=== PATIENT | male | born 1990 | race American Indian/Alaskan Native ===

== ENCOUNTER 2017-05-25 11:51 | Emergency (ER) | payer MEDICAID | END 2017-05-25 12:00 | disposition left against medical advice (07) | LOC: ED 11:51 | DX: M54.9 Dorsalgia, unspecified (principal); Z53.21 Procedure and treatment not carried out due to patient leaving prior to being seen by health care provider ==

== ENCOUNTER 2017-05-25 13:30 | Outpatient (CLI) | payer MEDICARE ==
--- NOTE | 2017-05-25 16:30 | XRay Report ---
LEFT SHOULDER: History: Shoulder pain. Routine views demonstrate normal bony and soft tissue structures with normal joint alignment of the shoulder. IMPRESSION: Normal study.
--- NOTE | 2017-05-25 16:32 | XRay Report ---
Lateral lumbar spine including flexion and extension views. History: Back pain. Findings: The vertebral body heights and disc spaces are normal. The bony structures are normally mineralized. No acute findings are seen. There is no evidence of subluxation with either flexion or extension films. Impression: No significant findings.
== END 2017-05-25 13:31 | disposition home or self-care (01) ==
LOC: XRAY 13:30
DX: M25.519 Pain in unspecified shoulder (principal); Z79.899 Other long term (current) drug therapy; F17.200 Nicotine dependence, unspecified, uncomplicated
CPT/HCPCS: 72100

== ENCOUNTER 2018-10-23 13:19 | Emergency (ER) | payer MEDICARE ==
[2018-10-23 14:00] VITALS: BP 121/74
[2018-10-23] MEDS ORDERED: NORCO 5/325 PO ONE (14:18)
[2018-10-23] MEDS ORDERED: IBUPROFEN PO ONE (14:18)
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
--- NOTE | 2018-10-23 15:05 | XRay Report ---
FINAL REPORT EXAM: XR SPINE THORACIC 2V HISTORY: fall injury with pain . COMPARISON: None. TECHNIQUE: Three views of the thoracic spine FINDINGS: There is normal alignment without acute fracture or dislocation. Vertebral body heights and intervert ebral disc spaces are maintained. The posterior elements are intact. The paravertebral soft tissues a re normal. IMPRESSION: No acute bony abnormality of the thoracic spine.
--- NOTE | 2018-10-23 15:10 | XRay Report ---
FINAL REPORT EXAM: XR KNEE 3V LT HISTORY: fall injury with pain COMPARISON: None. TECHNIQUE: Three views of the left knee FINDINGS: There is normal alignment without acute fracture or dislocation. There is no joint effusion. The over lying soft tissues are intact. IMPRESSION: No acute bony abnormality of the left knee.
== END 2018-10-23 16:53 | disposition home or self-care (01) ==
LOC: ED 13:19
DX: S83.92XA Sprain of unspecified site of left knee, initial encounter (principal); M54.6 Pain in thoracic spine; F17.200 Nicotine dependence, unspecified, uncomplicated; W18.30XA Fall on same level, unspecified, initial encounter; Y93.89 Activity, other specified; Y99.8 Other external cause status; Y92.512 Supermarket, store or market as the place of occurrence of the external cause
CPT/HCPCS: 72070; 99283

== ENCOUNTER 2022-05-19 14:20 | Outpatient (CLI) | payer MEDICARE ==
--- NOTE | 2022-05-19 16:42 | Vascular Lab Report ---
DUPLEX DOPPLER LOWER EXTREMITY VEINS, LEFT INDICATION / CLINICAL INFORMATION: PAIN/SWELLING. TECHNIQUE: Duplex doppler imaging was performed through the veins of the left lower extremity using v enous compression and other maneuvers. COMPARISON: None available. FINDINGS: LEFT COMMON FEMORAL VEIN: Negative. LEFT FEMORAL VEIN: Negative. LEFT POPLITEAL VEIN: Negative. LEFT CALF VEINS: Negative. ADDITIONAL FINDINGS: None. IMPRESSION: 1. No sonographic evidence for DVT in the left lower extremity. Scribed by: Afia Rogers RDMS, DRAKET, TAMEKA Scribed: 05/19/2022 3:08 PM I have reviewed the images, agree with this report, and edited this report as needed. Signer Name: Chris Mojica MD Signed: 05/19/2022 4:38 PM Workstation Name: Amanda Huff DBA [employer]
== END 2022-05-19 14:21 | disposition home or self-care (01) ==
LOC: VAS 14:20
PROVIDERS: ATTEND Podiatrist Foot & Ankle Surgery
DX: M79.89 Other specified soft tissue disorders (principal); M79.662 Pain in left lower leg